=== PATIENT | female | born 1940 | race Caucasian/White ===

== ENCOUNTER 2017-07-28 07:45 | Day surgery (SDC) | payer OTHER ==
[2017-07-27 18:07] VITALS: BMI 22.6
[2017-07-28] MEDS ORDERED: PROPOFOL 20 ML ONE (09:36)
[2017-07-28] MEDS ORDERED: MIDAZOLAM HCL 2 MG/2 ML SINGLE DOSE VIAL ONE (09:36)
[2017-07-28] MEDS ORDERED: SUCCINYLCHOLINE CHLORIDE 200 MG/10 ML VIAL ONE (09:36)
[2017-07-28] MEDS ORDERED: GENTAMICIN SO4 80 MG/2 ML VIAL ONE (09:38)
[2017-07-28] MEDS ORDERED: AMPICILLIN NA/SULBACTAM NA 1.5 GM/100 ML PRE-DOCKED IVPB ONE (09:45)
[2017-07-28] MEDS ORDERED: GENTAMICIN SO4 80 MG/2 ML VIAL IVPB ONE (09:46)
[2017-07-28] MEDS ORDERED: oxyCODONE HCL 5 MG TABLET PO PRN (10:56)
[2017-07-28] MEDS ORDERED: DEXTROSE 5%-0.45% SALINE 1,000 ML IV SCH (11:00)
--- NOTE | 2017-07-28 11:01 | OP ---
Operative Note - Note: Operative Date: 07/28/17 Pre-Operative Diagnosis: bilateral obstructing ureteral stones Operation: cysto/bilateral retrograde/bilateral ureteroscopy/rt laser lithotripsy/stent replacement Findings: rt ureteral and rt kidney stone Surgeon: Mark Williamson Anesthesia: General Specimens Removed: stone Estimated Blood Loss (mls): 0 Drains & Tubes with Location: 7fr 24cm stent on rt and 6fr 24cm stent on left Operative Report Dictated: Yes
[2017-07-28] MEDS ORDERED: ONDANSETRON 4 MG/2 ML VIAL IVPUSH PRN (11:03)
[2017-07-28] MEDS ORDERED: LACTATED RINGERS SOLUTION 1,000 ML IV SCH (11:15)
--- NOTE | 2017-07-28 11:57 | OP ---
DATE OF OPERATION: 07/28/2017 PREOPERATIVE DIAGNOSIS: Bilateral obstructing ureteral stone. POSTOPERATIVE DIAGNOSES: Right ureteral stone and right kidney stone. PROCEDURE: Cystoscopy, bilateral stent removal, bilateral ureteroscopy, retrograde pyelogram, right laser lithotripsy and stone basketing and stent placement, and bilateral stent placement. SURGEON: Sergey Chavez MD INDICATION: Patient is a 76-year-old female with obstructing bilateral ureteral stones status post stent placement several weeks ago, now taken to the OR for treatment of stones. DESCRIPTION OF PROCEDURE: Patient taken to the OR, placed supine on the table. After cardiac monitoring had been administered and general anesthesia established, she was prepped and draped in the dorsal lithotomy position. She was given 1.5 g of Unasyn and 80 mg of gentamicin intravenously. The rigid cystoscope was inserted into the urethra without difficulty and into the bladder. Bilateral ureteral orifices were seen with bilateral stents emanating from the orifices. Attention was first turned to the right side. The stent was removed with a grasper, and through the stent, a guidewire was advanced into the right renal pelvis and the stent removed. Alongside the guidewire, a rigid ureteroscope was advanced into the distal and mid-ureter, but no stone was seen. The rigid ureteroscope was then removed, and a flexible ureteroscope was advanced up the ureter. In the proximal ureter, a stone was seen, approximately 6 mm in size. This was pulverized to fine dust and 1- to 2-mm fragments. The flexible ureteroscope was then advanced into the kidney. One other stone was noted in the lower pole of the kidney, and this was pulverized to 1- to 2-mm fragments. One of the fragments was removed with the Graspit forceps and sent to Pathology for analysis. Repeat ureteroscopy on the right revealed no evidence of any residual large stone fragments. Ureteroscope was then removed, and a 7-Chinese 24-cm double-pigtail stent was then advanced in monorail fashion. Fluoroscopy confirmed the stent to be in good position. With the right side now completed, attention was turned to the left side. The stent was removed with a grasper, and through the stent, a guidewire was advanced into the left renal pelvis. Alongside the guidewire, a rigid ureteroscope was entered into the distal end of the ureter, but no stone was seen. rigid scope was then removed, and a 5-Chinese ureteroscope was advanced up the ureter into the kidney. The proximal ureter and entire kidney were inspected. No stones were noted, indicating passage of stone on this side. Ureteroscope was then removed, and a 6-Chinese 24-cm double-pigtail stent was then advanced in monorail fashion with fluoroscopy confirming the stent to be in good position. Patient was then awoken from anesthesia and transferred to the recovery room in stable condition. There were no complications. Estimated blood loss was zero. SERGEY CHAVEZ M.D. [id number]
[2017-07-28 14:07] VITALS: BP 107/56; PULSE 57
[2017-07-28 14:08] VITALS: TEMP 97.7
--- NOTE | 2017-07-29 08:34 | PATH ---
Surgical Pathology Report Patient Name: MING JONES Med. Rec. #: [id number] /Age/Gender: 1940 (Age: 76) / F Account: [id number] Location: [facility] SURGICAL Taken: 07/28/2017 Received: 07/28/2017 Reported: 07/29/2017 Physicians: Mark Williamson M.D. Specimen(s) Received A: RIGHT STENT REMOVED B: LEFT STENT REMOVED C: KIDNEY STONE RIGHT SIDE Clinical History Ureteral stone Final Diagnosis A. [employer]ELOPER, RIGHT URETER, REMOVAL: URETERAL STENT (GROSS ONLY). B. 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 C. KIDNEY STONE, RIGHT SIDE, EXTRACTION: CALCULI SUBMITTED FOR CHEMICAL ANALYSIS (gross only). Electronically Signed Joe Sierra M.D. Gross Description A. Received fresh labeled "right removed stent," is a 35 cm in length yellow-green, coiled portion of tubing, consistent with a ureteral stent. No soft tissue is present. No sections are submitted, gross only. B. Received fresh labeled "left removed stent," is a 35 cm in length yellow-green, coiled portion of tubing, consistent with a ureteral stent. No soft tissue is present. No sections are submitted, gross only. C. Received fresh labeled "kidney stone right side," is a 0.4 cm in greatest dimension brown, irregular calculus which is sent for chemical analysis. /07/28/2017 saudi07/28/2017
== END 2017-07-28 13:25 | disposition home or self-care (01) ==
LOC: JASU-SURG 07:45
PROVIDERS: ATTEND Urology
PROC: BT14YZZ Fluoroscopy of Kidneys, Ureters and Bladder using Other Contrast (ICD-10-PCS; 2017-07-28)
PROC: 0TF38ZZ Fragmentation in Right Kidney Pelvis, Via Natural or Artificial Opening Endoscopic (ICD-10-PCS; principal; 2017-07-28 09:00)
PROC: 0TF68ZZ Fragmentation in Right Ureter, Via Natural or Artificial Opening Endoscopic (ICD-10-PCS; 2017-07-28 09:00)
PROC: 0TP98DZ Removal of Intraluminal Device from Ureter, Via Natural or Artificial Opening Endoscopic (ICD-10-PCS; 2017-07-28 09:00)
PROC: 0T788DZ Dilation of Bilateral Ureters with Intraluminal Device, Via Natural or Artificial Opening Endoscopic (ICD-10-PCS; 2017-07-28 09:00)
DX: N20.1 Calculus of ureter (principal); N20.0 Calculus of kidney
CPT/HCPCS: 36415; 76000-TC; 82360; 88300-TC; 94760